=== PATIENT | male | born 1990 | race Caucasian/White ===

== ENCOUNTER 2017-12-15 19:59 | Emergency (ER) | payer OTHER ==
[~2017-12-15] VITALS: Ht 185.4 cm; Wt 99.8 kg
--- NOTE | 2017-12-15 20:41 | NUR ---
Dr. Herbert at bedside for MSE.
[2017-12-15] MEDS ORDERED: TDAP DIPH,PERTUSS,TET VAC/PF 0.5 ML DISP.SYRIN IM ONE ×2 (20:45→20:46)
--- NOTE | 2017-12-15 21:02 | NUR ---
Patient discharged to home in stable conditon. Written and verbal after care instructions given. Patient verbalizes understanding of instructions. Patient ambulated out of ER with steady gait, no acute signs of distress, VSS, all belongings taken.
[2017-12-15 21:06] VITALS: BP 127/78
== END 2017-12-15 21:33 | disposition home or self-care (01) ==
LOC: ER 20:00
DX: S61.001A Unspecified open wound of right thumb without damage to nail, initial encounter (principal); X58.XXXA Exposure to other specified factors, initial encounter; Y93.89 Activity, other specified; Y92.89 Other specified places as the place of occurrence of the external cause; Y99.8 Other external cause status
CPT/HCPCS: 90715; A4217; A4663